=== PATIENT | female | born 1930 | race Caucasian/White ===

== ENCOUNTER 2016-09-23 19:31 | Emergency (ER) | payer MEDICARE, BC ==
[2016-09-23 21:03] VITALS: BP 176/50
[2016-09-23] MEDS ORDERED: Aspirin Low Dose CHEW TAB* 81 MG PO ONE (21:16)
--- NOTE | 2016-09-23 21:27 | UC ---
Cardiac HPI - HPI Summary HPI Summary: 86 yo female presents "feeling bad all day" States she had 2 hours or more of upper left sided cp radiating to ant shoulder no sob no diaphoresis no n/v took baby asa this am hx cabg about 2004 - History of Current Complaint Chief Complaint: UCChestPain Stated Complaint: LEFT SHOULDER PAIN Time Seen by Provider: 09/23/16 21:03 Hx Obtained From: Patient Onset/Duration: Gradual Onset, Lasting Hours Timing: Constant Initial Severity: Moderate Current Severity: None Pain Intensity: 5 Chest Pain Location: Left Anterior Character: Dull/Aching Aggravating: Nothing Alleviating: Spontaneous Resolution Associated Signs & Symptoms: Positive: Chest Pain - Allergy/Home Medications Allergies/Adverse Reactions: Allergies Allergy/AdvReac Type Severity Reaction Status Date / Time Magnesium Allergy Intermediate Nausea Verified 09/23/16 21:01 Penicillins Allergy Nausea And Verified 09/23/16 20:54 Vomiting Home Medications: Home Medications Cholecalciferol [D 1000] 1,000 unit PO DAILY 09/23/16 [History Confirmed ] PMH/Surg Hx/FS Hx/Imm Hx Previously Healthy: Yes Endocrine History Of: Denies: Diabetes Cardiovascular History Of: 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, Hypertension - Surgical History Surgical History: Yes Surgery Procedure, Year, and Place: hysterectomy, cataracts, - Family History Known Family History: Positive: Hypertension - Social History Alcohol Use: None Substance Use Type: None Smoking Status (MU): Never Smoked Tobacco Review of Systems Constitutional: Negative Skin: Negative Eyes: Negative ENT: Negative Respiratory: Negative Cardiovascular: Chest Pain Gastrointestinal: Negative Genitourinary: Negative Motor: Negative Neurovascular: Negative Musculoskeletal: Negative Neurological: Negative Psychological: Negative All Other Systems Reviewed And Are Negative: Yes Physical Exam Triage Information Reviewed: Yes Appearance: Well-Appearing, No Pain Distress, Well-Nourished Vital Signs: Initial Vital Signs Temp 98.7 F 09/23/16 20:59 Pulse 55 09/23/16 20:59 Resp 18 09/23/16 20:59 BP 176/50 09/23/16 20:59 Pulse Ox 98 09/23/16 20:59 Eyes: Positive: Conjunctiva Clear ENT: Negative: Nasal congestion, Nasal drainage, Trismus, Muffled/hoarse voice Neck: Positive: Supple, Nontender Respiratory: Positive: Lungs clear, Normal breath sounds, No respiratory distress Cardiovascular: Positive: RRR, Bradycardia Abdomen Description: Positive: Nontender, No Organomegaly, Soft Bowel Sounds: Positive: Present Musculoskeletal: Positive: ROM Intact, No Edema Neurological: Positive: Alert Diagnostics - EKG Cardiac Rate: Bradycardia Cardiac Rhythm: Sinus: Normal Ectopy: None ST Segment: Normal - Assessment/Plan Course Of Treatment: patient refuses EMS transfer. reluctant to go to the ER but will go with daughter. d/w Dunia Lomeli accept pt [facility] - Clinical Impression Provider Diagnoses: chest pain of uncertain cause Discharge - Discharge Plan Condition: Guarded Disposition: TRANS HIGHER LVL OF CARE FAC
== END 2016-09-23 21:31 | disposition short-term general hospital (02) ==
LOC: UCCORT 19:31
DX: R07.9 Chest pain, unspecified (principal); Z95.1 Presence of aortocoronary bypass graft; Z88.0 Allergy status to penicillin
CPT/HCPCS: 93005; 99213; A9270-GY; G0463